=== PATIENT | female | born 1945 | race Caucasian/White ===

== ENCOUNTER 2019-03-01 20:37 | Emergency (ER) | payer SELFPAY ==
[~2019-03-01] VITALS: Ht 165.1 cm; Wt 82.7 kg
[2019-03-01 20:41] VITALS: Ht 165.1 cm; Wt 82.7 kg
[2019-03-01 21:25] LABS: BASOPHILS 0.1 % (0-2); EOSINOPHILS 0.9 % (0-7); HEMATOCRIT 41.9 % (36.0-48.0); HEMOGLOBIN 14.2 g/dL (12-16); IMMATURE GRANULOCYTES 0.2 % (0-5); LYMPHOCYTES 4.4 % (15-50); MCH 32.1 pg (26.0-34.0); MCHC 33.9 g/dL (31.0-37.0); MCV 94.8 fL (80.0-100.0); MEAN PLATELET VOLUME 9.3 fL (7.4-10.4); MONOCYTES 1.7 % (2-11); NEUTROPHILS 92.7 % (40-80); PLATELET COUNT 198 10x3/uL (130-400); RBC 4.42 10x6/uL (4.00-5.40); RDW 14.3 % (11.5-14.5)
[2019-03-01 21:35] LABS: APTT 26.3 SECONDS (22.8-39.4); INR 1.05 (0.85-1.17); PROTIME 13.2 SECONDS (11.6-15.0)
[2019-03-01 21:40] LABS: ALBUMIN 3.3 g/dL (3.4-5.0); ALKALINE PHOSPHATASE 99 U/L (46-116); ALT (SGPT) 52 U/L (10-68); BILIRUBIN - TOTAL 0.59 mg/dL (0.2-1.3); CALC OSMOLALITY 274 mosm/kg (275-300); CALCIUM 8.7 mg/dL (8.5-10.1); CARBON DIOXIDE 29.1 mmol/L (21.0-32.0); CHLORIDE - SERUM 102 mmol/L (98-107); CREATININE - SERUM 0.9 mg/dL (0.6-1.3); GLUCOSE 118 mg/dL (74-106); POTASSIUM - SERUM 4.2 mmol/L (3.5-5.1); PROTEIN - SERUM 6.9 g/dL (6.4-8.2); SODIUM 138 mmol/L (136-145); UREA NITROGEN 7 mg/dL (7-18); eGFR NON AFRICAN AMERICAN 65 mL/min (90-120)
[2019-03-01 21:52] LABS: CKMB 0.7 U/L (0.0-3.6); CREATINE KINASE 71 UL (21-215); MAGNESIUM - SERUM 1.4 mg/dL (1.8-2.4)
[2019-03-01 21:58] LABS: TROPONIN-I < 0.017 ng/mL (0.000-0.060)
[2019-03-01 22:25] LABS: APPEARANCE CLEAR (CLEAR); BILIRUBIN NEGATIVE (NEGATIVE); COLOR YELLOW (YELLOW); GLUCOSE NEGATIVE (NEGATIVE); KETONE NEGATIVE (NEGATIVE); NITRITE NEGATIVE (NEGATIVE); PROTEIN NEGATIVE (NEGATIVE); UROBILINOGEN NORMAL (NORMAL)
[2019-03-01 22:26] LABS: BACTERIA MODERATE /hpf (NONE SEEN); EPITHELIAL CELLS OCC /hpf (0-5); RED CELLS - URINE 0-5 /hpf (0-5)
[2019-03-01] MEDS ORDERED: KEFLEX500 MG PO (23:10)
[2019-03-01 23:46] VITALS: BP 122/63
== END 2019-03-01 23:25 | disposition home or self-care (01) ==
LOC: D.ER 20:37
PROVIDERS: Family Medicine
DX: N39.0 Urinary tract infection, site not specified (principal); M54.5 Low back pain